=== PATIENT | female | born 1990 | race Caucasian/White ===

== ENCOUNTER 2020-02-10 08:52 | Observation (INO) | payer BC, SELFPAY ==
[2020-02-10] VITALS (8 sets, daily range): BP systolic 103–149; BP diastolic 64–99; PULSE 107–125; RESP 18–23; TEMP 36.4–37.2; O2SAT 96–100; BMI 27.4
[2020-02-10] MEDS: morphine 4 mg/mL SDV 1 mL IVP ×2 (09:22→11:50)
--- NOTE | 2020-02-10 09:22 | W.ED.ABDPA2 ---
HPI - Abdominal Pain General: Chief Complaint: Abdominal Pain Stated Complaint: POSS FOOD POISONING Time Seen by Provider: 02/10/20 08:57 Source: patient Mode of arrival: ambulatory Limitations: no limitations History of Present Illness: HPI narrative: 29-year-old female patient presents to the emergency department complaining of abdominal cramping nausea vomiting. Patient states the only thing that will make her abdominal cramping/pain better is if she makes herself throw up. Pt states this started this am and she feels like it could be food poisoning however patient's states he ate the same thing and did not have any problems. Patient denies any diarrhea. Patient denies any fever. Patient denies any chest pain or shortness of breath. Patient states she has an IUD MD elicited complaint: abdominal pain Pertinent past history: none Onset (ago): hour(s) (4) Pain Consistency: constant Location: Epigastric, LUQ and RUQ Severity: moderate Quality: cramping and stabbing Radiation: none Migration to: no migration Relieving factors: vomiting Associated Symptoms: Reports nausea and vomiting; Denies change in bowel habits, chills, constipation, diarrhea, dysuria, fever(s) and hematemesis Review of Systems General: Reports: 10 or more systems reviewed and unremarkable except in HPI and below Const: Denies: fever(s) or chills Eyes: Denies: change in vision or blurry vision ENMT: Denies: throat pain, mouth pain or ear or mastoid pain Card: Denies: chest pain, palpitations or irregular heart rhythm Resp: Denies: dyspnea, productive cough, non-productive cough or wheezing GI: Reports: abdominal pain, nausea and vomiting; Denies: hematemesis, dysphagia, diarrhea, constipation or change in bowel habits : Denies: flank pain, difficulty voiding, dysuria, urinary frequency or urinary urgency Musc: Denies: neck pain or back pain Skin/Breast: Denies: rash Neuro: Denies: headache(s), numbness in extremities, dizziness or vertigo Psych: Denies: anxiety, suicidal ideation or homicidal ideation Physical Exam Const: COMMON NORMALS: no acute distress, average body habitus, patient oriented x3, no limitations, healthy appearing, alert and well nourished HENMT: COMMON NORMALS: normocephalic, atraumatic, hearing grossly normal bilaterally, external ears normal, EAC's normal, TM's normal bilaterally, Normal external nose present, Normal nasal mucous membranes and turbinates present, moist oral mucous membranes, oropharynx normal, dentition normal and gingiva normal HEAD & SCALP: normocephalic and atraumatic NOSE: Normal external nose present and Normal nasal mucous membranes and turbinates present EXTERNAL EAR: Yes external ears normal EXTERNAL AUDITORY CANAL: EAC's normal TYMPANIC MEMBRANE: TM's normal bilaterally Eye: COMMON NORMALS: Equal, round and reactive pupils present, EOMs intact bilaterally, conjunctivae normal, no scleral icterus, no papilledema, normal visual rider by confrontation and fundi normal bilaterally CONJUNCTIVA: Yes conjunctivae normal PUPIL: Yes Equal, round and reactive pupils present DIRECT OPHTHALMOSCOPY: Yes no papilledema and Yes fundi normal bilaterally Neck/C-Spine: COMMON NORMALS: full ROM, no lymphadenopathy, supple, no meningeal signs, no JVD, Thyroid normal and No carotid bruits THYROID: Thyroid normal Chest: COMMONS NORMALS: normal inspection of the chest, normal palpation of entire chest wall, normal inspection of the breasts and normal palpation of the breasts Resp: COMMON NORMALS: normal respiratory effort, No retractions, No use of accessory muscles, clear to auscultation bilaterally and percussion normal AUSCULTATION: clear to auscultation bilaterally PERCUSSION: percussion normal Cardio: COMMON NORMALS: no JVD, regular rate and regular rhythm RATE: regular rate RHYTHM: regular rhythm GI: COMMON NORMALS: Normal to inspection, nondistended, normoactive bowel sounds present and Soft to palpation AUSCULTATION: Yes normoactive bowel sounds PALPATION: Yes Soft to palpation and Yes Tenderness to palpation present (GI) Details: LUQ and RUQ RECTAL EXAM: deferred : COMMON NORMALS: Yes no CVA tenderness BLADDER/KIDNEY EXAM: Yes no CVA tenderness Back/Pelvis: COMMON NORMALS: no CVA tenderness, thoracic and lumbar spine normal to inspection, no thoracic nor lumbar tenderness, thoraco-lumbar ROM normal and straight leg raise negative bilaterally Extremity: COMMON NORMALS: normal to inspection, full ROM, capillary refill normal, no joint enlargement, no clubbing, cyanosis or edema, no calf tenderness and no pedal edema Neuro: COMMON NORMALS: patient oriented x3 SENSORIUM/ORIENTATION: Yes alert MENINGEAL SIGNS: Yes no meningeal signs Psych: COMMON NORMALS: mental status grossly normal, Normal thought process present, cooperative, normal affect, speech normal, activity/motor behavior normal, denies hallucinations, denies homicidal ideation and denies suicidal ideation SPEECH: Yes normal speech THOUGHT PROCESS: Normal thought process present Skin: COMMON NORMALS: no rashes or lesions noted, no wounds, turgor normal, no jaundice, no petechiae and no mottling GENERAL SKIN EXAM: no rashes or lesions noted and turgor normal Course Vital Signs: Vital signs: Vital Signs Temperature 98.4 F 02/10/20 13:41 Pulse Rate 125 H 02/10/20 13:41 Respiratory Rate 20 H 02/10/20 13:41 Blood Pressure 124/97 02/10/20 13:41 Pulse Oximetry 99 02/10/20 13:41 MDM - Abdominal Pain MDM Narrative: Medical decision making narrative: PT is ill appearing. Given patients physical exam finding I did CT her abd pelvis which did not reveal any concerning findings. Despite 2 liters of fluid and Zofran pt continues to vomit with abd pain. Pt was an elevated wbc. Urine does not reveal any infection. I did orer chest xray to possibly identify source of infection this was negative but did show some abnormal findings of humerus. I will xray humerus. Results are pending upon admission. Given patient condition, I will plan on admitting patient at this time Lab Data: Labs: Lab Results 02/10/20 02/10/20 02/10/20 Range/Units 09:36 09:36 09:36 WBC 23.6 H (4.0-10.0) 10^3/ uL RBC 6.02 H (4.1-5.3) 10^6/u L Hgb 16.5 H (11.5-15.3) g/dL Hct 51.1 H (37.0-47.0) % MCV 84.9 (81-99) fL MCH 27.4 L (28.0-34.0) pg MCHC 32.3 (30.0-36.0) g/dL RDW 12.2 (12.1-15.1) % Plt Count 283 (130-400) 10^3/c mm MPV 11.2 H (7.4-10.4) fL Neut % (Auto) 92.5 % Lymph % (Auto) 2.5 % [place] % (Auto) 4.1 % Eos % (Auto) 0.2 % Baso % (Auto) 0.3 % Neut # (Auto) 21.83 H (1.8-7.7) 10^3/u L Lymph # (Auto) 0.6 L (0.8-4.8) 10^3/u L [place] # (Auto) 1.0 H (0.2-0.9) 10^3/u L Eos # (Auto) 0.1 (0.0-0.8) 10^3/u L Baso # (Auto) 0.1 (0.0-0.1) 10^3/u L Nucleated RBC % (a uto) 0 % Nucleated RBCs # 0.0 /100WBC Sodium 144 (136-145) mmol/L Potassium 3.4 L (3.5-5.1) mmol/L Chloride 104 (98-107) mmol/L Carbon Dioxide 21 L (22-29) mmol/L Anion Gap 22.4 H (5-19) BUN 18 (6-20) mg/dL Creatinine 0.9 (0.5-0.9) mg/dL GFR Calculation 73.0 L (90-130) mL/min Glucose 157 H (65-115) mg/dL Calculated Osmolal ity 303 H (285-295) mOsm/k g Lactate (0.5-2.2) mmol/L Calcium 9.8 (8.5-10.5) mg/dL Total Bilirubin 0.6 (0.15-1.2) mg/dL AST 19 (0-32) U/L ALT 17 (0-33) U/L Alkaline Phosphata se 75 (35-105) IU/L Total Protein 8.5 (6.6-8.7) g/dL Albumin 5.0 (3.5-5.2) g/dL Globulin 3.5 (1.3-4.6) g/dL Lipase 22 (13-60) U/L Urine Color (Yellow) Urine Appearance (CLEAR) Urine pH (5-7) Ur Specific Gravit y (1.005-1.030) Urine Protein (Negative) Urine Glucose (UA) (Normal) Urine Ketones (Negative) Urine Blood (Negative) Urine Nitrate (Negative) Urine Bilirubin (Negative) Urine Urobilinogen (Negative) mg/dL Ur Leukocyte Valentina ase (Negative) Urine RBC (0-2) /hpf Urine WBC (0-5) /hpf Ur Squamous Epith Cells (0-5) /hpf Amorphous Sediment Urine Bacteria (NONE) /hpf Urine Mucus /hpf Urine HCG, Qual Negative (Negative) SARS-CoV-2 Ag (Rap id) (Negative) 02/10/20 02/10/20 02/10/20 Range/Units 09:36 10:45 12:31 WBC (4.0-10.0) 10^3/ uL RBC (4.1-5.3) 10^6/u L Hgb (11.5-15.3) g/dL Hct (37.0-47.0) % MCV (81-99) fL MCH (28.0-34.0) pg MCHC (30.0-36.0) g/dL RDW (12.1-15.1) % Plt Count (130-400) 10^3/c mm MPV (7.4-10.4) fL Neut % (Auto) % Lymph % (Auto) % [place] % (Auto) % Eos % (Auto) % Baso % (Auto) % Neut # (Auto) (1.8-7.7) 10^3/u L Lymph # (Auto) (0.8-4.8) 10^3/u L [place] # (Auto) (0.2-0.9) 10^3/u L Eos # (Auto) (0.0-0.8) 10^3/u L Baso # (Auto) (0.0-0.1) 10^3/u L Nucleated RBC % (a uto) % Nucleated RBCs # /100WBC Sodium (136-145) mmol/L Potassium (3.5-5.1) mmol/L Chloride (98-107) mmol/L Carbon Dioxide (22-29) mmol/L Anion Gap (5-19) BUN (6-20) mg/dL Creatinine (0.5-0.9) mg/dL GFR Calculation (90-130) mL/min Glucose (65-115) mg/dL Calculated Osmolal ity (285-295) mOsm/k g Lactate 2.9 H (0.5-2.2) mmol/L Calcium (8.5-10.5) mg/dL Total Bilirubin (0.15-1.2) mg/dL AST (0-32) U/L ALT (0-33) U/L Alkaline Phosphata se (35-105) IU/L Total Protein (6.6-8.7) g/dL Albumin (3.5-5.2) g/dL Globulin (1.3-4.6) g/dL Lipase (13-60) U/L Urine Color Yellow (Yellow) Urine Appearance Clear (CLEAR) Urine pH 6 (5-7) Ur Specific Gravit y 1.015 (1.005-1.030) Urine Protein Trace (Negative) Urine Glucose (UA) Norm (Normal) Urine Ketones 2+ H (Negative) Urine Blood Neg (Negative) Urine Nitrate Negative (Negative) Urine Bilirubin 1+ H (Negative) Urine Urobilinogen Norm (Negative) mg/dL Ur Leukocyte Valentina ase Negative (Negative) Urine RBC None (0-2) /hpf Urine WBC 0-4 H (0-5) /hpf Ur Squamous Epith Cells 0-4 H (0-5) /hpf Amorphous Sediment Not Reportable Urine Bacteria 1+ H (NONE) /hpf Urine Mucus 3+ /hpf Urine HCG, Qual (Negative) SARS-CoV-2 Ag (Rap id) Negative (Negative) Discharge Plan Discharge Patient Disposition: Admitted As Inpatient Admit Provider: Roc Pizano Condition: Stable Referrals: Roc Pizano MD [Primary Care Provider] - Coding Level of Care Code ED Machine Milker for Chg Fwd Exam Comprehensive
[2020-02-10] MEDS: ondansetron 2 mg/ML SDV 2 mL 4 MG IVP ×4 (09:23→18:20)
[2020-02-10] MEDS: sodium chloride 0.9% 1,000 ML 999 ML IV ×2 (09:23→12:01)
[2020-02-10 09:40] LABS: Basophils # 0.1 10^3/uL (0.0-0.1); Basophils % 0.3 %; Eosinophils # 0.1 10^3/uL (0.0-0.8); Eosinophils % 0.2 %; Hematocrit 51.1 % (37.0-47.0); Hemoglobin 16.5 g/dL (11.5-15.3); Lymphocytes # 0.6 10^3/uL (0.8-4.8); Lymphocytes % 2.5 %; Mean Corpuscular HGB Conc 32.3 g/dL (30.0-36.0); Mean Corpuscular Hemoglobin 27.4 pg (28.0-34.0); Mean Corpuscular Volume 84.9 fL (81-99); Mean Platelet Volume 11.2 fL (7.4-10.4); Monocytes % 4.1 %; Neutrophils # 21.83 10^3/uL (1.8-7.7); Neutrophils % 92.5 %; Nucleated Red Blood Cells % 0 %; Platelet Count 283 10^3/cmm (130-400); Red Blood Count 6.02 10^6/uL (4.1-5.3); Red Cell Distribution Width 12.2 % (12.1-15.1); White Blood Count 23.6 10^3/uL (4.0-10.0)
--- NOTE | 2020-02-10 09:42 | CTR_ITS ---
PROCEDURE INFORMATION: Exam: CT Abdomen And Pelvis With Contrast Exam date and time: 02/10/2020 10:26 AM Age: 29 years old Clinical indication: Abdominal pain; Epigastric; Patient HX: Upper abdomen pain, n/v; Additional info: Abd pain TECHNIQUE: Imaging protocol: Computed tomography of the abdomen and pelvis with intravenous contrast. Radiation optimization: All CT scans at this facility use at least one of these dose optimization techniques: automated exposure control; mA and/or kV adjustment per patient size (includes targeted exams where dose is matched to clinical indication); or iterative reconstruction. Contrast material: OMNIPAQUE 300; Contrast volume: 95 ml; Contrast route: INTRAVENOUS (IV); COMPARISON: US OB >14 Weeks [id number] 07/12/2018 4:26 PM RADIATION DOSE METRICS: Total DLP (mGy-cm): 747.58 FINDINGS: Liver: Normal. No mass. Gallbladder and bile ducts: Normal. No calcified stones. No ductal dilation. Pancreas: Normal. No ductal dilation. Spleen: Normal. No splenomegaly. Adrenals: Normal. No mass. Kidneys and ureters: No hydronephrosis. No mass. Stomach and bowel: No obstruction. No inflammatory changes. Appendix: No evidence of appendicitis. Intraperitoneal space: No free air. No significant fluid collection. Vasculature: Unremarkable. No abdominal aortic aneurysm. Lymph nodes: Unremarkable. No enlarged lymph nodes. Urinary bladder: Unremarkable as visualized. Reproductive: IUD in appropriate position. Oval 4.0 x 2.7 x 4.0 cm thin walled homogeneous left adnexal cyst measuring 24 Hounsfield units on image 66 series 2. Bones/joints: Unremarkable. No acute fracture. Soft tissues: Unremarkable. CT/CT abdomen pelvis w con* [id number] IMPRESSION: 1. No acute findings. No source for symptoms identified on CT. 2. 4 cm left adnexal cyst most likely representing functional ovarian cyst. This could be followed up with ultrasound in 6 weeks to ensure resolution. Radiation Dose CTDIVOL = (mGy): DLP = 747.58 (mGy-cm)
[2020-02-10 09:44] LABS: Add Urine Microscopic? YES; Bilirubin Urine 1+ (Negative); Blood Urine Neg (Negative); Glucose Urine UA Norm (Normal); Ketones Urine 2+ (Negative); Leukocyte Esterase Urine Negative (Negative); Nitrate Urine Negative (Negative); Protein Urine Trace (Negative); Specific Gravity, Urine 1.015 (1.005-1.030); Urine Appearance Clear (CLEAR); Urine Color Yellow (Yellow); Urobilinogen Urine Norm (Negative); pH Urine 6 (5-7)
[2020-02-10 10:01] LABS: Alanine Aminotransferase 17 U/L (0-33); Alkaline Phosphatase 75 IU/L (35-105); Anion Gap 22.4 (5-19); Aspartate Amino Transferase 19 U/L (0-32); Blood Urea Nitrogen 18 mg/dL (6-20); Calcium 9.8 mg/dL (8.5-10.5); Carbon Dioxide 21 mmol/L (22-29); Chloride 104 mmol/L (98-107); Globulin 3.5 g/dL (1.3-4.6); Glucose 157 mg/dL (65-115); Lipase 22 U/L (13-60); Osmolality Calculated 303 mOsm/kg (285-295); Potassium 3.4 mmol/L (3.5-5.1); Sodium 144 mmol/L (136-145); Total Bilirubin 0.6 mg/dL (0.15-1.2); Total Protein 8.5 g/dL (6.6-8.7)
[2020-02-10 10:03] LABS: Add Urine Culture? No; Bacteria Urine 1+ /hpf; Mucus Urine 3+ /hpf; Squamous Epithelial Cell Urine 0-4 /hpf (0-5); WBC Urine 0-4 /hpf (0-5)
[2020-02-10] MEDS: iohexol 300 mg/mL 100 mL Btl IV (10:39)
--- NOTE | 2020-02-10 11:07 | XRR_ITS ---
PROCEDURE INFORMATION: Exam: XR Chest, 1 View Exam date and time: 02/10/2020 11:08 AM Age: 29 years old Clinical indication: Shortness of breath; Additional info: SOB TECHNIQUE: Imaging protocol: XR of the chest Views: 1 view. COMPARISON: CT abdomen pelvis performed just prior to this exam. No prior chest imaging available. FINDINGS: Lungs: Lungs symmetrically expanded. No consolidation. Pleural space: Unremarkable. No evidence of pleural effusion or pneumothorax. Heart/Mediastinum: Unremarkable. No cardiomegaly. Bones/joints: The included left proximal humeral shaft appears expanded with numerous rounded lucencies throughout. Bones otherwise unremarkable. XR/XR chest 1V portable [id number] IMPRESSION: Abnormal left humeral shaft which appears expanded with multiple lucencies throughout, only partially included. Recommend dedicated views of the humerus if not previously performed.
[2020-02-10 11:42] LABS: Lactate (Lactic Acid level) 2.9 mmol/L (0.5-2.2)
--- NOTE | 2020-02-10 12:05 | XRR_ITS ---
PROCEDURE INFORMATION: Exam: XR Left Humerus Exam date and time: 02/10/2020 12:07 PM Age: 29 years old Clinical indication: Abnormal findings; Abnormal imaging study of the limbs; Cxr; Additional info: Susp findings on cxr TECHNIQUE: Imaging protocol: XR Left humerus Views: 2 or more views. COMPARISON: No relevant prior studies available. FINDINGS: Bones/joints: Abnormal humeral shaft involving 17 cm of the humeral shaft with enlarged diameter, endosteal scalloping and heterogeneous lucencies and areas of sclerosis with differential diagnosis including intermediate stage Paget's disease versus other benign or malignant lesion. Soft tissues: Normal. XR/[place] [id number] IMPRESSION: Abnormal humeral shaft involving 17 cm of the humeral shaft with enlarged diameter, endosteal scalloping and heterogeneous lucencies and areas of sclerosis with differential diagnosis including intermediate stage Paget's disease versus other benign or malignant lesion.
[2020-02-10 13:13] LABS: SARS Covid-2 Antigen Negative (Negative)
[2020-02-10] MEDS: sodium chloride 0.9% 1,000 ML 100 ML IV (14:35)
--- NOTE | 2020-02-10 14:54 | PM.HP ---
"Providers/Chief Complaint Admitting Physician: Roc Pizano MD Primary Care Provider: Roc Pizano MD Chief Complaint: POSS FOOD POISONING History of Present Illness Maribel Blum is a 29 year old female who is otherwise pretty healthy. She went to a birthday republic[place] yesterday afternoon between 2-4. She had several different types of food there. Did not eat anything after that. Nobody is gotten sick that she is aware from that. No sick contacts that she is aware of. Apparently 2:00 this morning she woke up all of a sudden with vomiting and diarrhea. She had no fevers. She had some abdominal pain and cramping. This persisted throughout the day and prompted her to come on into the emergency room late morning. She has no cough. No change in smell or taste. She continues to have some nausea but the Zofran has helped some. She has had no other unusual foods or drinks. Nothing uncooked that she knows of. Nothing contaminated. No exposures to hepatitis or COVID that she is aware of. No recent antibiotic use. 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 tableau developer at [facility] PAST SURGICAL HISTORY: 2 surgeries - left wrist and hand for Olliers disease;left foot bunyonectomy; left labral hip tear and repair. Family History (reviewed - no changes required): Mom had Leukemia age 55. 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 no smoking. occ alcohol - none during Review of Systems Narrative: General: No chronic fevers or chronic weight changes. HEENT: No acute changes in vision. No acute hearing loss. No new difficulty swallowing. Heart: No new chest pain or recent issues with coronary disease. Lungs: No history of TB. No chronic lung disease. GI: No history of GI bleeding. No hepatitis. No chronic nausea or vomitting. Renal: No dysuria or frequency. No hematuria Neuro: No acute neurological changes or deficits. Musculoskeletal: No acutely worsening joint pain or swelling. Medications/Allergies Home Medications Medication Instructions Recorded Confirmed Last Taken Type Excedrin Migraine 1 tab PO Q6H PRN 02/10/20 02/10/20 Unknown History Mirena See Rx Instructions .ROUTE .COMPLEX 02/10/20 02/10/20 Unknown History phentermine 37.5 mg PO DAILY 02/10/20 02/10/20 02/09/20 History ciprofloxacin HCl [Cipro] 250 mg PO BID #10 tab 02/11/20 Unknown Rx ondansetron HCl [Zofran] 4 mg PO Q6H PRN #20 tab 02/11/20 Unknown Rx Allergies Allergy/AdvReac Type Severity Reaction Status Date / Time cefaclor [From Ceclor] Allergy Unknown Verified 02/10/20 09:42 cefixime [From Suprax] Allergy Unknown Verified 02/10/20 09:42 PFSH Acute Female Reproductive History: Date of last menstrual period: 02/01/20 Vitals/I&O/Wt Last Vital Signs Temp 98.4 F 02/10/20 13:41 Pulse 125 H 02/10/20 13:41 Resp 20 H 02/10/20 13:41 BP 124/97 02/10/20 13:41 Pulse Ox 99 02/10/20 13:41 Weight last 48 hrs Weight 170 lb Physical Exam Narrative: EXAM NARRATIVE: General: No acute distress, Alert. Well nourished. HEENT: PERRLA, EOMI. vision grossly normal. Throat clear. Neck: supple, no adenopathy. Heart: Regular rate and rhythm. No murmurs, rubs or gallops. Normal capillary refill. Lungs: Clear to auscultation. No wheezes, rhonchi or rales. Abdomen: Positive bowel sounds. Mild diffuse tenderness, non-distended. No hepatosplenomegaly. No gaurding. Extremities: No clubbing, cyanosis, or edema. Negative Elizabeth's. Data : 02/11/20 04:15 02/11/20 04:15 Micro: Microbiology 02/10/20 11:05 Blood Culture - Preliminary Blood SPECIMEN COLLECTED 02/10/20 10:46 Blood Culture - Preliminary Blood SPECIMEN COLLECTED A&P Assessment and plan (1) Gastroenteritis: Patient is 29-year-old female with an acute gastroenteritis at this point of unclear etiology. Most likely cause would be food poisoning from her recent gathering. However, there are no other sick contacts that she is aware of at this time. She has significant leukocytosis and a left shift present. Vital signs are stable at this time. We will continue with IV fluids. We will add Cipro and Flagyl for antibiotic coverage. Continue IV Zofran. Obtain stool cultures and ova and parasites. Check for C. difficile. Repeat labs in the morning. If she is doing much better by morning we will be able to discharge her home tomorrow. Initial COVID testing was negative. Status: Resolved (2) Dehydration: Status: Resolved Attestations Medical Necessity Statement*: Patient will most likely not require 2 nights of stay. She will hopefully go home tomorrow after IV fluids. Coding Level of Care Code Acute Oil Sales And Service Rep for g Fwd Diagnoses Gastroenteritis K52.9 Dehydration E86.0"
[2020-02-10] MEDS: metroNIDAZOLE IV 500 MG/100 ML PREMIX 100 MG IV (15:10)
[2020-02-10] MEDS: ciprofloxacin 200 MG/100 ML PREMIX 100 MG IV (16:13)
[2020-02-11] MEDS: metroNIDAZOLE IV 500 MG/100 ML PREMIX 100 MG IV ×2 (00:11→06:14)
[2020-02-11] MEDS: sodium chloride 0.9% 1,000 ML 150 ML IV ×2 (00:12→05:19)
[2020-02-11 03:46] VITALS: BP 105/71; PULSE 86; RESP 20; TEMP 36.9; O2SAT 97
[2020-02-11 04:55] LABS: Basophils % 0.3 %; Eosinophils % 0.6 %; Hematocrit 36.5 % (37.0-47.0); Hemoglobin 11.7 g/dL (11.5-15.3); Lymphocytes # 0.9 10^3/uL (0.8-4.8); Lymphocytes % 13.1 %; Mean Corpuscular HGB Conc 32.1 g/dL (30.0-36.0); Mean Corpuscular Hemoglobin 27.7 pg (28.0-34.0); Mean Corpuscular Volume 86.3 fL (81-99); Mean Platelet Volume 11.2 fL (7.4-10.4); Monocytes # 0.3 10^3/uL (0.2-0.9); Neutrophils # 5.28 10^3/uL (1.8-7.7); Neutrophils % 80.7 %; Nucleated Red Blood Cells % 0 %; Platelet Count 163 10^3/cmm (130-400); Red Blood Count 4.23 10^6/uL (4.1-5.3); Red Cell Distribution Width 12.5 % (12.1-15.1); White Blood Count 6.6 10^3/uL (4.0-10.0)
[2020-02-11 05:13] LABS: Alanine Aminotransferase 11 U/L (0-33); Albumin Level 3.2 g/dL (3.5-5.2); Alkaline Phosphatase 39 IU/L (35-105); Anion Gap 11.5 (5-19); Aspartate Amino Transferase 13 U/L (0-32); Blood Urea Nitrogen 10 mg/dL (6-20); Calcium 7.5 mg/dL (8.5-10.5); Carbon Dioxide 22 mmol/L (22-29); Chloride 108 mmol/L (98-107); Globulin 2.1 g/dL (1.3-4.6); Glomerular Filtration Rate 83.7 mL/min (90-130); Glucose 100 mg/dL (65-115); Osmolality Calculated 285 mOsm/kg (285-295); Potassium 3.5 mmol/L (3.5-5.1); Sodium 138 mmol/L (136-145); Total Bilirubin 0.5 mg/dL (0.15-1.2); Total Protein 5.3 g/dL (6.6-8.7)
[2020-02-11] MEDS: ciprofloxacin 200 MG/100 ML PREMIX 100 MG IV (05:19)
[2020-02-11 07:42] VITALS: BP 112/73; PULSE 88; RESP 16; TEMP 36.5; O2SAT 97
--- NOTE | 2020-02-11 10:02 | PM.DCS ---
Discharge Providers Date of Admission: 02/10/20 13:00 Date of Discharge: February 11, 2020 Attending Provider at Admission: Roc iPzano MD Attending Provider at Discharge: Roc Pizano MD Primary Care Provider: Roc Pizano MD Diagnoses at Discharge Discharge Diagnosis (1) Gastroenteritis: Status: Resolved (2) Dehydration: Status: Resolved Reason for Visit Reason for Visit: POSS FOOD POISONING Hospital Course Discharge Summary: Patient was admitted for gastroenteritis and dehydration. Recieved IV fluids and felt much better. Symptoms resolved by day of discharge. Physical Exam Narrative: EXAM NARRATIVE: General: No acute distress, Alert. Well nourished. HEENT: PERRLA, EOMI. vision grossly normal. Throat clear. Neck: supple, no adenopathy. Heart: Regular rate and rhythm. No murmurs, rubs or gallops. Normal capillary refill. Lungs: Clear to auscultation. No wheezes, rhonchi or rales. Abdomen: Positive bowel sounds. Non-tender, non-distended. No hepatosplenomegaly. No gaurding. Extremities: No clubbing, cyanosis, or edema. Negative Elizabeth's. Discharge Data Data Completed and Pending: Completed Studies During Hospitalization Category Date Time Status CT abdomen pelvis w con* [id number] Urge nt Cat Scan 02/10/20 09:42 Completed XR chest 1V elise ble [id number] Stat Exams 02/10/20 11:07 Completed XR humerus LT 730 [id number] Stat Exams 02/10/20 12:05 Completed Vitals: Last Vital Signs Temp 98.1 F 02/11/20 13:21 Pulse 79 02/11/20 13:21 Resp 15 02/11/20 13:21 BP 117/81 02/11/20 13:21 Pulse Ox 98 02/11/20 13:21 Discharge Plan Discharge Patient Disposition: Home Condition: Stable Prescriptions: New Cipro 250 mg tablet 250 mg PO BID Qty: 10 RF: 0 Zofran 4 mg tablet 4 mg PO Q6H PRN (Reason: nausea and vomiting) Qty: 20 RF: 0 Continued phentermine 37.5 mg tablet 37.5 mg PO DAILY RF: 0 Excedrin Migraine 250-250-65 mg Tablet 1 tab PO Q6H PRN (Reason: migraines) RF: 0 Mirena 20 mcg/24 hours (5 yrs) 52 mg Intrauterine Device See Rx Instructions .ROUTE .COMPLEX RF: 0 Discharge Orders: Discharge Order (Routine); Ordered 02/11/20 Ordered By: Roc Pizano Referrals: Roc Pizano MD [Primary Care Provider] - 4-7 days (Follow up with Dr Pizano February 13 at 1000.) Discharge Diet: Advance as tolerated Discharge Activity: Resume usual activity Patient Instructions: Dehydration - Adult, Ciprofloxacin (By mouth), Ondansetron (By mouth), Gastroenteritis (DC) Activity Restrictions/Additional Instructions: - call if increased vomitting or diarrhea. - follow up with Dr. Pizano if not resolved in 2-3 days Discharge Date/Time: 02/11/20 13:45 Discharge Attestations Time Spent in Discharge Care*: less than 30 min Quality Metrics Clinical Quality Measures During this hospital stay, did patient experience: None Coding Level of Care Code Acute Academic Specialist for Chg Fwd Diagnoses Gastroenteritis K52.9 Dehydration E86.0
[2020-02-11 10:56] VITALS: BP 117/81; PULSE 79; RESP 15; TEMP 36.7; O2SAT 98
[2020-02-11 13:21] VITALS: BP 117/81; PULSE 79; RESP 15; TEMP 36.7; O2SAT 98
== END 2020-02-11 13:45 | disposition home or self-care (01) ==
LOC: ER 12:05 → MEDSURG 13:23
PROVIDERS: Emergency Medicine; Registered Nurse; Admitting Provider Family Medicine; PCP Family Medicine; Visit Provider Family Medicine
DX: K52.9 Noninfective gastroenteritis and colitis, unspecified (principal); E86.0 Dehydration
CPT/HCPCS: 12345; 36415; 71045; 73060; 74177; 80053; 81001; 81025; 83605; 83690; 85025; 87040; 87205; 87426; 96361; 96365; 96366; 96374; 96375; 96376; 99283; 99285; G0378; J0744; J2270; J2405; J7030; Q9967; S0030

== ENCOUNTER 2020-03-07 07:02 | Outpatient (CLI) | payer BC, SELFPAY ==
--- NOTE | 2020-03-07 07:10 | MR_ITS ---
WS: [id number] MRI LEFT HUMERUS without CONTRAST. COMPARISON: LEFT humerus radiograph 02/10/2020. HISTORY: Ollier's disease. No history of pain provided. Multiplanar, multisequence imaging is performed without contrast. There are numerous lobulated T2 bright lesions throughout the RIGHT humerus beginning in the humeral head and extending through the diaphysis and metaphysis. There is mild expansion of the metaphysis an d diaphysis of the humerus. Although there is bone expansion and mild thinning of the cortex is no co mplete disruption of the cortex identified. There is no identifiable soft tissue mass. These lesions appear to follow cartilage signal on all sequences as expected for Ollier's disease. There is in the additional similar lesion in the acromion process MR/MR humerus LT wo con* [id number] IMPRESSION: 1. Numerous expansile lesions throughout the humerus involving the medullary c avity. Typical appearance for Ollier's disease. 2. These lesions can undergo malignant transformation. These patients will typ ically percent with pain, mass and pathological fractures. No history of pain w as described. If there is concern for malignant transformation follow-up evalua tion with contrast should be obtained. 3. Additional similar lesion in the LEFT acromion.
== END 2020-03-07 07:03 | disposition home or self-care (01) ==
LOC: RADSHAW 07:04
PROVIDERS: PCP Family Medicine; Visit Provider Family Medicine
DX: Q78.4 Enchondromatosis (principal)
CPT/HCPCS: 73218

== ENCOUNTER → 2020-05-04 13:11 | Outpatient (BNVA) | payer BC, SELFPAY | PROVIDERS: PCP Family Medicine; Visit Provider Nurse Practitioner Family | DX: Z20.828 Contact with and (suspected) exposure to other viral communicable diseases (principal) | CPT/HCPCS: 87635 ==